=== PATIENT | female | born 1995 | race Caucasian/White ===

== ENCOUNTER 2021-05-20 08:51 | Outpatient (CLI) | payer BC ==
[2021-05-20] VITALS (7 sets, daily range): BP systolic 119–145; BP diastolic 59–78; PULSE 72–79; TEMP 98.2
[2021-05-20] MEDS ORDERED: ALDACTONE50 MG PO (09:50)
[2021-05-20] MEDS ORDERED: ACCUTANE40 M1 PO (09:50)
[2021-05-20] MEDS ORDERED: PROZAC40 MG PO (09:51)
== END 2021-05-20 10:45 | disposition home or self-care (01) ==
LOC: EUO 08:51
DX: J02.9 Acute pharyngitis, unspecified (principal)
CPT/HCPCS: Q0244